=== PATIENT | male | born 1995 | race Caucasian/White ===

== ENCOUNTER 2019-02-11 22:19 | Emergency (ER) | payer OTHER ==
--- NOTE | 2019-02-12 00:05 | ED ---
Complex/Multi-Sys Presentation - HPI Summary HPI Summary: Patient is a 23 y/o male who presents to the ED c/o sore throat. 4 days ago he began with a fever, headache, mild cough, and sore throat. Patient still has a sore throat and cough but the fever and headache have resolved. Today he began to have dysphagia, bloody nasal discharge, and hematuria. Patient describes his urine as pure blood. He denies any abdominal pain, back pain, or testicular pain. Patient denies any recent intercourse. He has a hx of strep throat. FHx colorectal CA, patients father was diagnosed at 30 y/o. - History Of Current Complaint Chief Complaint: EDGeneral Time Seen by Provider: 02/11/19 23:52 Hx Obtained From: Patient Onset/Duration: Gradual Onset, Lasting Days - 4, Still Present Timing: Constant Location: Pain At: - sore throat, [place] Aggravating Factor(s): Nothing Alleviating Factor(s): Nothing Associated Signs And Symptoms: Positive: Headache, Cough, Fever. Negative: Abdominal Pain, Back Pain - Allergies/Home Medications Allergies/Adverse Reactions: Allergies Allergy/AdvReac Type Severity Reaction Status Date / Time No Known Allergies Allergy Verified 02/11/19 22:25 PMH/Surg Hx/FS Hx/Imm Hx Endocrine/Hematology History: Denies: Hx Blood Disorders, Hx Diabetes Cardiovascular History: Denies: Hx Hypertension Infectious Disease History: No Infectious Disease History: Denies: Traveled Outside the [place] in Last 30 Days - Family History Known Family History: Positive: Cardiac Disease - cardiomyopathy - mother passed at 40 y/o, Other - colorectal CA - father at 30 y/o - Social History Alcohol Use: Occasionally Hx Substance Use: No Substance Use Type: Reports: None Hx Tobacco Use: No Smoking Status (MU): Never Smoked Tobacco Review of Systems Positive: Fever - resolved Positive: Sore Throat, Nasal Discharge - bloody, Other - dysphagia Positive: Cough - mild Negative: Abdominal Pain Positive: hematuria. Negative: other - testicular pain Negative: Myalgia - back Positive: Headache - resolved All Other Systems Reviewed And Are Negative: Yes Physical Exam - Summary Physical Exam Summary: Appearance: Well appearing, no pain distress Skin: warm, dry, reflects adequate perfusion Head/face: normal Eyes: EOMI, PASTOR ENT: mucous membranes moist, ears normal, mucus in posterior pharynx, no blood in posterior pharynx Neck: supple, non-tender Respiratory: CTA, breath sounds present Cardiovascular: RRR, pulses symmetrical Abdomen: non-tender, soft, no CVA tenderness Bowel Sounds: present Musculoskeletal: normal, strength/ROM intact Neuro: normal, sensory motor intact, A&Ox3 Triage Information Reviewed: Yes Vital Signs On Initial Exam: Initial Vitals Temp Pulse Resp BP Pulse Ox 98.2 F 71 16 137/84 97 02/11/19 22:24 02/11/19 22:24 02/11/19 22:24 02/11/19 22:24 02/11/19 22:24 Vital Signs Reviewed: Yes Diagnostics - Vital Signs Vital Signs Temp Pulse Resp BP Pulse Ox 02/11/19 22:24 98.2 F 71 16 137/84 97 - Laboratory Result Diagrams: 02/12/19 00:19 02/12/19 00:19 Lab Statement: Any lab studies that have been ordered have been reviewed, and results considered in the medical decision making process. Re-Evaluation - Re-Evaluation First Eval Re-Evaluation Time: 01:25 Change: Unchanged Comment: Discussed lab results. Pt still has a sore throat. Complex Multi-Symp Course/Dx Course Of Treatment: Nurse's notes reviewed. College-age student who is very well appearing without fever resents with sore throat and hematuria. His urine is grossly clean and only shows 1+ blood on the microscopic. Strep testing, mono negative. Laboratories nonrevealing. It seems that the hematuria may be related to trauma or sexual activity. He will have this followed up closely with [facility]. His sore throat was treated with steroids. - Diagnoses Differential Diagnoses/HQI/PQRI: Other - Poststreptococcal glomerulonephritis, kidney stone, viral cause, strep throat, mono Provider Diagnoses: Acute pharyngitis, Hematuria Discharge - Sign-Out/Discharge Documenting (check all that apply): Patient Departure - Discharge Patient Received Moderate/Deep Sedation with Procedure: No - Discharge Plan Condition: Improved Disposition: HOME Prescriptions: Dexamethasone TAB* [Decadron TAB*] 8 mg PO DAILY #8 tab Patient Education Materials: Pharyngitis (ED), Hematuria (ED) Referrals: [facility] [Provider Group] Additional Instructions: Call first thing in the morning to schedule prompt follow-up back [facility]. They need to see you if you're having recurring blood in the urine. Return with high fever, difficulty breathing, worse, new symptoms or other concerns. Drink plenty of fluids, Tylenol or ibuprofen for discomfort. - Billing Disposition and Condition Condition: IMPROVED Disposition: Home - Attestation Statements Document Initiated by Cheryl: Yes Documenting Scribe: Belinda Villegas Provider For Whom Cheryl is Documenting (Include Credential): Marcelo Nixon MD Scribe Attestation: IBelinda, scribed for Marcelo Nixon MD on 02/12/19 at 0338. Scribe Documentation Reviewed: Yes Provider Attestation: The documentation as recorded by the Belinda foley accurately reflects the service I personally performed and the decisions made by , Marcelo Nixon MD Status of Scribe Document: Viewed
[2019-02-12 00:31] LABS: Urine Appearance Clear; Urine Bacteria Absent (Absent); Urine Bilirubin Negative (Negative); Urine Blood 1+ (Negative); Urine Color Yellow; Urine Glucose Negative (Negative); Urine Ketones Negative (Negative); Urine Nitrite Negative (Negative); Urine Protein Negative (Negative); Urine Red Blood Cell Trace(0-2/hpf) (Absent); Urine Specific Gravity 1.017 (1.010-1.030); Urine Urobilinogen Negative (Negative); Urine White Blood Cell Trace(0-5/hpf) (Absent)
[2019-02-12 00:32] LABS: ABS Basophils 0.1 10^3/ul (0-0.2); ABS Eosinophils 0.2 10^3/ul (0-0.6); ABS Lymphocytes 2.7 10^3/ul (1.0-4.8); ABS Monocytes 0.8 10^3/ul (0-0.8); ABS Neutrophils 4.4 10^3/ul (1.5-7.7); ABS Nucleated RBC 0 10^3/ul; Eosinophil % 2.1 %; Hematocrit 44 % (36-46); Hemoglobin 14.9 g/dL (14.0-18.0); Lymphocyte % 33.6 %; Mean Corpuscular HGB Conc 34 g/dL (31-36); Mean Corpuscular Hemoglobin 30 pg (27-31); Mean Corpuscular Volume 90 fL (80-94); Mean Platelet Volume 8.7 fL (7.4-10.4); Nucleated Red Blood Cells % 0.1; Platelet Count 199 10^3/uL (150-450); Red Cell Distribution Width 13 % (10.5-15); White Blood Count 8.2 10^3/uL (3.5-10.8)
[2019-02-12 00:48] LABS: BUN/Creatinine Ratio 14.2 (8-20); Calcium 9.1 mg/dL (8.6-10.3); EGFR Non-African American 85.1 (>60); Potassium 3.9 mmol/L (3.5-5.0)
[2019-02-12] MEDS ORDERED: Ibuprofen TAB* 400 MG PO ONE (01:27)
[2019-02-12] MEDS ORDERED: predniSONE TAB* 20 MG PO ONE (01:27)
[2019-02-12] MEDS ORDERED: Dexamethasone TAB* 4 MG PO ONE (01:31)
[2019-02-12 01:47] VITALS: BP 128/82
== END 2019-02-12 01:44 | disposition home or self-care (01) ==
LOC: ED 22:19
DX: J02.9 Acute pharyngitis, unspecified (principal); R31.9 Hematuria, unspecified; R51 Headache; R05 Cough; R50.9 Fever, unspecified
CPT/HCPCS: 36415; 80048; 81003; 81015; 85025; 86060; 86308; 87086; 87651; 99282; A9270-GY; J8540